=== PATIENT | male | born 1990 ===

== ENCOUNTER 2024-10-20 10:06 | Day surgery (SDC) | payer OTHER ==
[2024-10-20] MEDS ORDERED: LIDOCAINE HCL 1%/EPINEPHRINE 20ML VIAL IJ ONE (13:44)
[2024-10-20] MEDS ORDERED: POVIDONE-IODINE 118 ML BOTT TOP ONE (13:44)
[2024-10-20] MEDS ORDERED: OXYMETAZOLINE HCL 15 ML NASAL DROPS NASAL SCH (15:45)
[2024-10-20] MEDS ORDERED: CIPROFLOXACIN HCL 0.175 MG/DR DROPS OTIC SCH (15:45)
== END 2024-10-20 18:15 | disposition home or self-care (01) ==
LOC: CIR.AMB 10:06
PROVIDERS: ATTEND Otolaryngology
DX: H66.93 Otitis media, unspecified, bilateral (principal); Z88.8 Allergy status to other drugs, medicaments and biological substances